=== PATIENT | male | born 1980 | race Caucasian/White ===

== ENCOUNTER 2023-11-20 09:43 | Emergency (ER) | payer OTHER ==
[~2023-11-20] VITALS: Ht 175.3 cm; Wt 108.6 kg
[~2023-11-20 09:43] MED LIST: NAPROXEN500 MG PO; NO HOME MEDICATIONS; NORCO 325 MG-51 TA1 PO; PRILOSEC 20MG20 MG PO
[2023-11-20] MEDS ORDERED: ZESTRIL5 M1 PO (10:11)
[2023-11-20] MEDS ORDERED: ADVIL 200MG TA200 MG PO (10:12)
[2023-11-20] MEDS ORDERED: Proparacaine 0.5% Ophth Soln 15 ML BOTTLE *BULK OP ONE (11:15)
[2023-11-20] MEDS ORDERED: VIBRAMYCIN HYC100 MG PO (11:55)
[2023-11-20] MEDS ORDERED: METRONIDAZOLE500 M1 PO (11:55)
[2023-11-20] MEDS ORDERED: PREMIERPRO RX5 MG/GM OP (11:55)
[2023-11-20] MEDS ORDERED: Ibuprofen 200 MG TAB PO ONE (12:15)
[2023-11-20 12:22] VITALS: BP 135/105
== END 2023-11-20 12:23 | disposition home or self-care (01) ==
LOC: ED 09:43
DX: S81.851A Open bite, right lower leg, initial encounter (principal); H57.12 Ocular pain, left eye; H53.9 Unspecified visual disturbance; Z88.0 Allergy status to penicillin; Z23 Encounter for immunization; W54.0XXA Bitten by dog, initial encounter; Y93.02 Activity, running; Y92.89 Other specified places as the place of occurrence of the external cause
CPT/HCPCS: 90715